=== PATIENT | female | born 1960 | race Caucasian/White ===

== ENCOUNTER 2016-07-04 12:26 | Day surgery (SDC) | payer OTHER ==
[~2016-07-04] VITALS: Ht 157.5 cm; Wt 61.1 kg
[2016-07-04 13:50] VITALS: Ht 157.5 cm; Wt 61.1 kg
[2016-07-04] MEDS ORDERED: ASPI81TA3 PO (13:57)
[2016-07-04] MEDS ORDERED: BUPR150T18 PO (13:57)
[2016-07-04] MEDS ORDERED: BENA10TA48 PO (13:57)
[2016-07-04] MEDS ORDERED: MAGN400T38 PO (13:57)
[2016-07-04] MEDS ORDERED: ESTR2TAB PO (13:57)
[2016-07-04] MEDS ORDERED: [UNRECOGNIZED DRUG - CODE] PO (13:57)
[2016-07-04] MEDS ORDERED: TRAZ100T15 PO (13:57)
[2016-07-04] MEDS ORDERED: FERR134T PO (13:57)
[2016-07-04] MEDS ORDERED: OMEP40CA6 PO (13:57)
[2016-07-04] MEDS ORDERED: SYN112 PO (13:57)
[2016-07-04] MEDS ORDERED: NAPR275T83 PO (13:57)
[2016-07-04] MEDS ORDERED: PROG100C5 PO (13:57)
[2016-07-04] MEDS ORDERED: ACET250T22 PO (13:57)
[2016-07-04] MEDS ORDERED: GABA300C16 PO (13:57)
[2016-07-04 15:16] VITALS: BP 144/72; PULSE 64; RESP 12
[2016-07-04] MEDS ORDERED: LIDOCAINE 2% (SDV) 5 ML INJ ONE (15:29)
[2016-07-04] MEDS ORDERED: PROPOFOL 60 ML ONE (15:29)
--- NOTE | 2016-07-09 19:51 | GILP ---
DATE OF PROCEDURE: 07/04/2016 NAME OF PROCEDURE: Esophagogastroduodenoscopy with biopsies. SURGEON: Genny Castano MD PREOPERATIVE DIAGNOSIS: POSTOPERATIVE DIAGNOSIS: BRIEF HISTORY AND INDICATIONS: The patient is being evaluated for dyspepsia and pyrosis. PREMEDICATION: Monitored anesthesia care by anesthesiologist. INSTRUMENT USED: Olympus panendoscope. TECHNIQUE: After informed consent, with the patient/relatives understanding the procedure, its indic ations, potential risks and complications, including but not limited to: allergic reaction, bleeding , perforation or infection, and after all pertinent questions were answered to the patients satisfac tion, the patient/relatives signed witnessed informed consent. Following this, premedication was administered slowly IV push under careful cardiovascular and respi ratory monitoring with pulse oximetry, automatic blood pressure and radiation monitor. Once the sedative effect was achieved the patient was place in the left lateral decubitus, the panen doscope was introduced and advanced under visual control. Careful examination of the upper gastrointestinal tract, both on insertion as well as withdrawal of the instrument disclosed the following findings: ESOPHAGUS: The mucosa of the entire esophagus appears within normal limits. There is no evidence of esophagitis, varices, neoplasm or stricture. No hiatal hernia identified. STOMACH: Upon entrance to the stomach air was insufflated, the gastric white distended normally. T here is a 5 mm antral gastric ulceration, benign endoscopic appearance. Biopsies were obtained to r ule out H pylori infection. PYLORUS: The pylorus appears patent and within normal limits, with no evidence of gastric outlet ob struction. DUODENUM: The duodenal mucosa was carefully examined in the duodenal bulb as well as the second por tion of the duodenum and appears unremarkable with no evidence of duodenitis, ulcer or neoplasm. The instrument was then withdrawn, the patient tolerated the procedure well and was transfer out of the endoscopy suite awake, and in good condition to continue recovery under observation IMPRESSION: A 5 mm antral gastric ulceration, rule out Helicobacter pylori infection, biopsies obta ined. PLAN: The patient will be treated with PPIs. Pathology will be reviewed as soon as available. Fol lowup endoscopy in 8 weeks is recommended. Dictated By: GENNY CASTANO MS/ZAINA Conf#: [id number] DID#: [id number]
--- NOTE | 2016-07-09 19:54 | GILP ---
DATE OF PROCEDURE: 07/04/2016 DATE: 07/04/2016 NAME OF PROCEDURE: Colonoscopy to cecum with multiple biopsies. SURGEON: Genny Castano MD. PREOPERATIVE DIAGNOSIS(ES): POSTOPERATIVE DIAGNOSIS(ES): HISTORY AND INDICATIONS: PREMEDICATION: Monitored anesthesia care by anesthesiologist. INSTRUMENT USED: Olympus colonoscope. PREPARATION: Adequate. TECHNIQUE: After informed consent, with the patient/relatives understanding the procedure, its indic ations potential risks and complications, including but not limited to: allergic reaction, bleeding, perforation, infection, missed lesions and after all pertinent questions were answered to the patie nt's satisfaction, the patient/relatives signed the witnessed informed consent. Following this, premedication was administered slowly IV push by under careful cardiovascular and re spiratory monitoring with pulse oximetry, automatic blood pressure and scraper hand. Once the sedativ e effect was achieved, the patient was placed in the left lateral decubitus position, digital rectal examination was performed. The colonoscope was then introduced and advanced under visual control th roughout all segments of the colon including: the rectum, sigmoid, descending colon, splenic flexure , transverse colon, hepatic flexure, ascending colon and finally reaching the cecum which was clearl y identified by transillumination, finger indentation and the ileocecal valve. Careful examination o f the mucosa of the lower gastrointestinal tract both on insertion as well as withdrawal of the inst rument disclosed the following findings: Rectal Examination: No evidence of perirectal disease, no masses. Colonic Mucosa: The colonic mucosa is remarkable for erythema and edema of the mucosa, with a moder ate degree in the rectosigmoid area. Biopsies were obtained. The remainder of the colonic mucosa u nremarkable. The ileocecal valve was clearly identified and appears unremarkable. Terminal ileum a ppears unremarkable, as well. The instrument was withdrawn reexamining the mucosa in detail. No ad ditional abnormalities are noted, with the exception of moderate-sized internal hemorrhoids. The instrument was then withdrawn, the patient tolerated the procedure well and was transferred out of the Endoscopy Suite awake and in good condition to continue recovery under observation. IMPRESSION 1. Erythema and edema of a moderate degree in the rectosigmoid, rule out proctitis. Biopsies are o btained. 2. Moderate-sized internal hemorrhoids. 3. Otherwise, normal colonic mucosa to cecum. 4. Normal terminal ileum. RECOMMENDATIONS: The patient will be followed up as an outpatient. Pathology will be reviewed. Fu rther recommendation will depend on the patient's clinical course. Dictated By: GENNY CASTANO MS/ZAINA Conf#: [id number] DID#: [id number]
== END 2016-07-04 16:31 | disposition home or self-care (01) ==
LOC: GIL 12:26
PROVIDERS: ATTEND Internal Medicine Gastroenterology
DX: Z12.11 Encounter for screening for malignant neoplasm of colon (principal); K64.8 Other hemorrhoids; Z80.0 Family history of malignant neoplasm of digestive organs; K25.9 Gastric ulcer, unspecified as acute or chronic, without hemorrhage or perforation; I10 Essential (primary) hypertension
CPT/HCPCS: 43239; 45378; 88305; 88312; Z7610